=== PATIENT | male | born 1935 | race Caucasian/White ===

== ENCOUNTER 2018-04-29 12:25 | Emergency (ER) | payer MEDICARE, OTHER ==
[2018-04-29] MEDS ORDERED: Sodium Chloride 0.9% 10 ML Syringe FLUSH PRN (13:00)
[2018-04-29] MEDS ORDERED: Furosemide 40 MG/4 ML VIAL IVPUSH ONE ×2 (13:00→17:41)
--- NOTE | 2018-04-29 13:23 | EDM.PDOC ---
ED HPI GENERAL MEDICAL PROBLEM - General Chief Complaint: Cardiovascular Problem Stated Complaint: ANEMIA BLOOD IN STOOL Time Seen by Provider: 04/29/18 12:42 Source of Information: Reports: Patient, RN Notes Reviewed - History of Present Illness INITIAL COMMENTS - FREE TEXT/NARRATIVE: 82-year-old male was been sent over [facility] further evaluation, consideration for admission for blood transfusion. Found to be anemic with a hemoglobin of 7.7 last week, 7.5 this morning. Had progressive shortness of breath over the past couple of weeks especially point where it is difficult for him to walk even in the house even more difficult outdoors. She has to just shuffle, walked very slowly or he gets "too out of breath. He has not been coughing any more than usual. He does have history of hypertension. He did see a docket clerk just sometime in the past month or so, was told his heart "was fine". He has had worsening swelling of his ankles and feet over the past several weeks. He has not noticed any black or tarry stools. He does have some hemorrhoids but No bright red blood has been visualized. He has had colonoscopy in the past, about 8 or 9 years ago. He has no history of bleeding ulcer anything of that nature. He does take aspirin 325 mg daily in addition to his other current medications. - Related Data Allergies Allergy/AdvReac Type Severity Reaction Status Date / Time alcohol Allergy Headache Verified 04/29/18 12:55 hydrochlorothiazide Allergy Cannot Verified 04/29/18 12:55 Remember Penicillins Allergy Hives Verified 04/29/18 12:55 Home Meds: Home Meds Allopurinol [Zyloprim] 100 mg PO DAILY 04/29/18 [History] Aspirin 325 mg PO DAILY 04/29/18 [History] Calcium Carbonate [Tums] 1 tab PO DAILY PRN 04/29/18 [History] Clindamycin HCl 300 mg PO TID 04/29/18 [History] Colestipol [Colestipol HCl] 1 gm PO DAILY PRN 04/29/18 [History] Enalapril Maleate [Vasotec] 20 mg PO DAILY 04/29/18 [History] Furosemide [Lasix] 20 mg PO DAILY 04/29/18 [History] Furosemide [Lasix] 40 mg PO DAILY #30 tab 04/29/18 [Rx] Meloxicam [Mobic] 15 mg PO DAILY 04/29/18 [History] Metoprolol Tartrate [Lopressor] 50 mg PO BID 04/29/18 [History] amLODIPine [Norvasc] 5 mg PO DAILY 04/29/18 [History] Past Medical History Cardiovascular History: Reports: Heart Failure, Hypertension - Past Surgical History GI Surgical History: Reports: Appendectomy, Hernia Repair/Other Other GI Surgeries/Procedures: colectomy Neurological Surgical History: Reports: Laminectomy Musculoskeletal Surgical History: Reports: Other (See Below) Other Musculoskeletal Surgeries/Procedures:: knee surgery Social & Family History - Tobacco Use Smoking Status *Q: Never Smoker Second Hand Smoke Exposure: No - Caffeine Use Caffeine Use: Reports: Soda - Recreational Drug Use Recreational Drug Use: No ED ROS GENERAL - Review of Systems Review Of Systems: See Below Constitutional: Reports: Malaise, Weakness (Generalized). Denies: Fever, Chills , Diaphoresis HEENT: Denies: Sinus Problem, Throat Pain Respiratory: Reports: Shortness of Breath. Denies: Wheezing, Cough (, Especially exertional) Cardiovascular: Reports: Edema. Denies: Chest Pain GI/Abdominal: Denies: Abdominal Pain, Nausea, Vomiting Musculoskeletal: Reports: No Symptoms Skin: Reports: No Symptoms Neurological: Reports: Dizziness ED EXAM, GENERAL - Physical Exam Exam: See Below General Appearance: Alert, No Apparent Distress Eye Exam: Bilateral Eye: PERRL Throat/Mouth: Normal Inspection Neck: Supple Respiratory/Chest: No Respiratory Distress, Lungs Clear, Normal Breath Sounds. No: Rales, Rhonchi, Wheezing Cardiovascular: Regular Rate, Rhythm GI/Abdominal: Soft, Non-Tender Rectal (Males) Exam: Normal Exam, Heme - Stool Extremities: Pedal Edema. No: Leg Pain, Increased Warmth, Redness Neurological: Alert, Oriented, No Motor/Sensory Deficits Skin Exam: Warm, Dry, Pallor Course - Vital Signs Last Recorded V/S: Last Vital Signs Temp 98.9 F 04/29/18 18:08 Pulse 66 04/29/18 18:08 Resp 16 04/29/18 18:08 BP 151/86 H 04/29/18 18:08 Pulse Ox 98 04/29/18 18:08 - Orders/Labs/Meds Orders: Active Orders 24 hr Category Date Time Status Peripheral IV Care [RC] . DIRECTED Care 04/29/18 13:00 Active PACKED CELLS [RED BLOOD CELLS LP] [BBK] Stat Lab 04/29/18 13:30 Results PATIENT RETYPE [BBK] Stat Lab 04/29/18 13:30 Results TYPE AND SCREEN [BBK] Stat Lab 04/29/18 13:30 Results Sodium Chloride 0.9% [Normal Saline] 500 ml Med 04/29/18 13:44 Active IV NOW Sodium Chloride 0.9% [Saline Flush] Med 04/29/18 13:00 Active 10 ml FLUSH ASDIRECTED PRN Peripheral IV Insertion Adult [OM.PC] Stat Oth 04/29/18 13:00 Ordered Medication Orders Sodium Chloride (Normal Saline) 500 mls @ 30 mls/hr IV NOW STA Stop: 04/30/18 06:23 Last Admin: 04/29/18 14:57 Dose: 30 mls/hr Sodium Chloride (Saline Flush) 10 ml FLUSH ASDIRECTED PRN PRN Reason: Keep Vein Open Last Admin: 04/29/18 13:24 Dose: 10 ml Labs: Laboratory Tests 04/29/18 04/29/18 Range/Units 13:30 13:30 Iron 44 L (65-175) ug/dL Blood Type A POSITIVE Gel Antibody Screen Negative Crossmatch See Detail Meds: Medications Generic Name Dose Route Start Last Admin Trade Name Freq PRN Reason Stop Dose Admin Sodium Chloride 500 mls @ 30 mls/hr 04/29/18 13:44 04/29/18 14:57 Normal Saline IV 04/30/18 06:23 30 mls/hr NOW STA Administration Sodium Chloride 10 ml 04/29/18 13:00 04/29/18 13:24 Saline Flush FLUSH 10 ml ASDIRECTED PRN Administration Keep Vein Open Discontinued Medications Generic Name Dose Route Start Last Admin Trade Name Freq PRN Reason Stop Dose Admin Furosemide 40 mg 04/29/18 13:00 04/29/18 13:23 Lasix IVPUSH 04/29/18 13:01 40 mg NOW ONE Administration Furosemide 40 mg 04/29/18 17:41 04/29/18 17:49 Lasix IVPUSH 04/29/18 17:42 40 mg NOW ONE Administration - Re-Assessments/Exams Free Text/Narrative Re-Assessment/Exam: 04/29/18 13:00. Patient is not really ill enough for admission into the hospital to receive blood. However he is clearly very symptomatic with his severe shortness of breath even with very slow walking. Hemoglobin is dropping from 7.7 last to 7.5 today. He will clearly benefit from transfusion. We will do that here through the ED this afternoon. Have previously already given Lasix 40 mg IV. Patient is very agreeable to this plan. He will then need further outpatient workup, especially colonoscopy, endoscopy to look for source of bleeding. 04/29/18 19:02. Patient is doing well, receiving a second unit. We did give another 40 of Lasix prior to starting the second unit about an hour and a half ago. Departure - Departure Time of Disposition: 20:14 Disposition: Home, Self-Care 01 Condition: Fair Clinical Impression: Fluid retention Anemia Qualifiers: Anemia type: unspecified type Qualified Code(s): D64.9 - Anemia, unspecified Congestive heart failure Qualifiers: Heart failure type: right-sided Heart failure chronicity: unspecified Qualified Code(s): I50.810 - Right heart failure, unspecified Prescriptions: Furosemide [Lasix] 40 mg PO DAILY #30 tab Referrals: Rosalia Duarte, ANATOMY AND PHYSIOLOGY INSTRUCTOR [Primary Care Provider] - Forms: ED Department Discharge Additional Instructions: Rest and elevate legs when not walking, furosemide or lasix 40 mg daily in addition to your other medications at this time, if you are already taking Lasix or furosemide 20 mg stop that while increased to the 40 mg dosage. That is a water pill as well as a blood pressure medicine, will help get rid of the extra fluid you are retaining at this time. Follow-up with Rosalia Duarte at the clinic in about 2 days, call for appointment. She will help make further arrangements for colonoscopy, endoscopy for further evaluation of what appears to be blood loss anemia. Begin iron supplement and take that twice daily as your iron today did test low. Pickup probiotic this evening as well when you' re at the pharmacy, that is available OTC. That should help you with your diarrhea. Take that 2 times daily for 1 week and thereafter as needed. - My Orders Last 24 Hours: My Active Orders 04/29/18 13:00 Peripheral IV Care [RC] . DIRECTED Sodium Chloride 0.9% [Saline Flush] 10 ml FLUSH ASDIRECTED PRN Peripheral IV Insertion Adult [OM.PC] Stat 04/29/18 13:30 PACKED CELLS [RED BLOOD CELLS LP] [BBK] Stat PATIENT RETYPE [BBK] Stat TYPE AND SCREEN [BBK] Stat 04/29/18 13:44 Sodium Chloride 0.9% [Normal Saline] 500 ml IV NOW - Assessment/Plan Last 24 Hours: My Active Orders 04/29/18 13:00 Peripheral IV Care [RC] . DIRECTED Sodium Chloride 0.9% [Saline Flush] 10 ml FLUSH ASDIRECTED PRN Peripheral IV Insertion Adult [OM.PC] Stat 04/29/18 13:30 PACKED CELLS [RED BLOOD CELLS LP] [BBK] Stat PATIENT RETYPE [BBK] Stat TYPE AND SCREEN [BBK] Stat 04/29/18 13:44 Sodium Chloride 0.9% [Normal Saline] 500 ml IV NOW
[2018-04-29] MEDS ORDERED: Sodium Chloride 0.9% 500 ML IV STA (13:44)
--- NOTE | 2018-04-29 14:51 | CR ---
Chest: Portable view of the chest was obtained. Comparison: No prior chest x-ray, prior chest CT of 11/04/12. Heart is slightly enlarged. Tortuous thoracic aorta is seen. Minimal linear density within the right base is seen compatible with slight atelectasis or scarring. Lungs otherwise are clear with no acute parenchymal change. Bony structures are grossly intact. Impression: 1. Incidental findings. Nothing acute is seen on portable chest x-ray. Diagnostic code #2
[2018-04-29 18:12] VITALS: BP 151/86
== END 2018-04-29 20:50 | disposition home or self-care (01) ==
LOC: JD.ED 12:25
DX: I11.0 Hypertensive heart disease with heart failure (principal); I50.810 Right heart failure, unspecified; R60.9 Edema, unspecified; Z88.0 Allergy status to penicillin; Z88.8 Allergy status to other drugs, medicaments and biological substances; Z79.899 Other long term (current) drug therapy; Z79.82 Long term (current) use of aspirin
CPT/HCPCS: 36415; 36430; 71045; 83540; 86850; 86900; 86901; 86922; 96361; 96374; 96376; 99285; J1940; J7040; J7050; P9016; 99284

== ENCOUNTER 2018-05-01 12:39 | Inpatient (IN) | payer MEDICARE, OTHER ==
[2018-05-01] MEDS ORDERED: Sodium Chloride 0.9% 10 ML Syringe FLUSH PRN (13:29)
--- NOTE | 2018-05-01 14:25 | CR ---
Chest: Frontal view of the chest was obtained utilizing portable technique. Comparison: Prior chest x-ray of 04/29/18. Prominence of the superior mediastinum is seen. Difficult to exclude adenopathy. Heart is mildly enlarged. Lungs are clear with no acute parenchymal densities. Bony structures are grossly intact. Impression: 1. Prominence of superior mediastinum and difficult to exclude adenopathy. Chest CT would be needed to further evaluate. 2. Mild cardiomegaly. Nothing acute is otherwise seen. Diagnostic code #9
[2018-05-01] MEDS ORDERED: Diltiazem 25 MG/5 ML SDV IVPUSH ONE (14:44)
--- NOTE | 2018-05-01 14:45 | EDM.PDOC ---
ED HPI GENERAL MEDICAL PROBLEM - General Chief Complaint: Respiratory Problem Stated Complaint: SOB-SENT BY CLINIC Time Seen by Provider: 05/01/18 13:29 Source of Information: Reports: Patient History Limitations: Reports: No Limitations - History of Present Illness INITIAL COMMENTS - FREE TEXT/NARRATIVE: The patient is an 82-year-old male who was sent over from Dr. Downey clinic for irregular tachycardia. Patient was seen here 2 days ago with shortness of breath. At that time he was completely anemic with a hemoglobin of 7. He was transfused 2 units of blood. Guaiac testing at that time was reportedly normal. He was also started on Lasix for lower extremity edema. He's been taking the Lasix and states that the edema has gone down a lot. He continues to feel short of breath. States that he's been feeling short of breath for quite some time. No chest pain and no palpitations. He was seen in clinic today by Dr. Aguirre and noted to have an irregular tachycardia so sent here for further evaluation. He states he has had an irregular heartbeat before but has never been told that he has atrial fibrillation. No fever. No additional complaint. States that he did not take her Lasix this morning but he did take his usual blood pressure medications which include metoprolol. - Related Data Allergies Allergy/AdvReac Type Severity Reaction Status Date / Time alcohol Allergy Headache Verified 05/01/18 17:37 hydrochlorothiazide Allergy Cannot Verified 05/01/18 17:37 Remember Penicillins Allergy Hives Verified 05/01/18 17:37 Home Meds: Home Meds Allopurinol [Zyloprim] 100 mg PO DAILY 04/29/18 [History] Aspirin 325 mg PO DAILY 04/29/18 [History] Calcium Carbonate [Tums] 1 tab PO DAILY PRN 04/29/18 [History] Clindamycin HCl 300 mg PO TID 04/29/18 [History] Colestipol [Colestipol HCl] 1 gm PO DAILY PRN 04/29/18 [History] Enalapril Maleate [Vasotec] 20 mg PO DAILY 04/29/18 [History] Furosemide [Lasix] 20 mg PO DAILY 04/29/18 [History] Furosemide [Lasix] 40 mg PO DAILY #30 tab 04/29/18 [Rx] Meloxicam [Mobic] 15 mg PO DAILY 04/29/18 [History] Metoprolol Tartrate [Lopressor] 50 mg PO BID 04/29/18 [History] amLODIPine [Norvasc] 5 mg PO DAILY 04/29/18 [History] Past Medical History Cardiovascular History: Reports: Heart Failure, Hypertension Respiratory History: Reports: Pneumonia, Recurrent Gastrointestinal History: Reports: GERD Genitourinary History: Reports: Renal Calculus Musculoskeletal History: Reports: Fracture Hematologic History: Reports: Anemia, Blood Transfusion(s), Iron Deficiency - Infectious Disease History Infectious Disease History: Reports: Chicken Pox, Measles, Mumps - Past Surgical History GI Surgical History: Reports: Appendectomy, Hernia Repair/Other Other GI Surgeries/Procedures: colectomy Neurological Surgical History: Reports: Laminectomy Musculoskeletal Surgical History: Reports: Other (See Below) Other Musculoskeletal Surgeries/Procedures:: knee surgery Social & Family History - Tobacco Use Smoking Status *Q: Never Smoker Second Hand Smoke Exposure: No - Caffeine Use Caffeine Use: Reports: Soda - Recreational Drug Use Recreational Drug Use: No ED ROS GENERAL - Review of Systems Review Of Systems: See Below Constitutional: Denies: Fever HEENT: Reports: No Symptoms Respiratory: Reports: Shortness of Breath Cardiovascular: Denies: Chest Pain, Palpitations Endocrine: Reports: Fatigue GI/Abdominal: Reports: No Symptoms : Reports: No Symptoms Musculoskeletal: Reports: No Symptoms Skin: Reports: No Symptoms Neurological: Reports: No Symptoms Psychiatric: Reports: No Symptoms Hematologic/Lymphatic: Reports: No Symptoms Immunologic: Reports: No Symptoms ED EXAM, GENERAL - Physical Exam Exam: See Below Exam Limited By: No Limitations General Appearance: Alert, WD/WN, No Apparent Distress Eye Exam: Bilateral Eye: Normal Inspection, PERRL Ears: Normal External Exam Nose: Normal Inspection Throat/Mouth: Normal Inspection, Normal Oropharynx, Normal Voice, No Airway Compromise Head: Atraumatic, Normocephalic Neck: Normal Inspection, Supple, Non-Tender, Full Range of Motion Respiratory/Chest: No Respiratory Distress, Lungs Clear, Normal Breath Sounds, No Accessory Muscle Use, Chest Non-Tender Cardiovascular: No Edema, Irregularly Irregular, Other (Rate ranges from 120-140 ) GI/Abdominal: Soft, Non-Tender, No Distention Back Exam: Normal Inspection Extremities: Normal Inspection, No Pedal Edema Neurological: Alert, Oriented, Normal Cognition, No Motor/Sensory Deficits Psychiatric: Normal Affect, Normal Mood Skin Exam: Warm, Dry, Intact, Normal Color, No Rash Course - Vital Signs Last Recorded V/S: Last Vital Signs Temp 36.6 C 05/01/18 17:31 Pulse 105 H 05/01/18 17:31 Resp 16 05/01/18 17:31 BP 124/77 05/01/18 17:31 Pulse Ox 94 L 05/01/18 17:31 - Orders/Labs/Meds Orders: Active Orders 24 hr Category Date Time Status EKG 12 Lead [EKG Documentation Completion] [RC] STAT Care 05/01/18 13:29 Active UA W/MICROSCOPIC [URIN] Stat Lab 05/01/18 13:29 Ordered Sodium Chloride 0.9% [Saline Flush] Med 05/01/18 13:29 Active 10 ml FLUSH ASDIRECTED PRN Peripheral IV Insertion Adult [OM.PC] Routine Oth 05/01/18 13:30 Ordered Medication Orders Metoprolol Tartrate (Lopressor) 50 mg PO TID STEPHY Metoprolol Tartrate (Lopressor) 5 mg IVPUSH Q6H PRN PRN Reason: heart rate Sodium Chloride (Saline Flush) 10 ml FLUSH ASDIRECTED PRN PRN Reason: Keep Vein Open Last Admin: 05/01/18 13:37 Dose: 10 ml Labs: Laboratory Tests 05/01/18 05/01/18 05/01/18 Range/Units 13:47 13:47 13:47 WBC 12.66 H (4.23-9.07) K/mm3 RBC 5.04 (4.63-6.08) M/mm3 Hgb 10.5 L (13.7-17.5) gm/L Hct 35.1 L (40.1-51.0) % MCV 69.6 L (79.0-92.2) fl MCH 20.8 L (25.7-32.2) pg MCHC 29.9 L (32.2-35.5) g/dl RDW Std Deviation 49.9 H (35.1-43.9) fL Plt Count 270 (163-337) K/mm3 MPV 10.8 (9.4-12.3) fl Neut % (Auto) 78.5 H (34.0-67.9) % Lymph % (Auto) 9.8 L (21.8-53.1) % [place] % (Auto) 10.0 (5.3-12.2) % Eos % (Auto) 1.3 (0.8-7.0) Baso % (Auto) 0.2 (0.1-1.2) % Neut # (Auto) 9.93 H (1.78-5.38) K/mm3 Lymph # (Auto) 1.24 L (1.32-3.57) K/mm3 [place] # (Auto) 1.27 H (0.30-0.82) K/mm3 Eos # (Auto) 0.16 (0.04-0.54) K/mm3 Baso # (Auto) 0.03 (0.01-0.08) K/mm3 Manual Slide Review Abnormal smear PT 12.2 H (9.5-12.1) SECONDS INR 1.12 Sodium 144 (136-145) mEq/L Potassium 3.5 (3.5-5.1) mEq/L Chloride 109 H (98-107) mEq/L Carbon Dioxide 22 (21-32) mEq/L Anion Gap 16.5 H (5-15) BUN 29 H (7-18) mg/dL Creatinine 1.9 H (0.7-1.3) mg/dL Est Cr Clr Drug Dosing 31.01 mL/min Estimated GFR (MDRD) 34 (>60) mL/min BUN/Creatinine Ratio 15.3 (14-18) Glucose 136 H (83-115) mg/dL Calcium 8.0 L (8.5-10.1) mg/dL Magnesium 1.7 L (1.8-2.4) mg/dl Total Bilirubin 0.7 (0.2-1.0) mg/dL AST 13 L (15-37) U/L ALT 15 L (16-63) U/L Alkaline Phosphatase 105 (46-116) U/L Troponin I < 0.017 (0.00-0.056) ng/mL Total Protein 6.4 (6.4-8.2) g/dl Albumin 3.1 L (3.4-5.0) g/dl Globulin 3.3 gm/dL Albumin/Globulin Ratio 0.9 L (1-2) Meds: Medications Generic Name Dose Route Start Last Admin Trade Name Freq PRN Reason Stop Dose Admin Metoprolol Tartrate 50 mg 05/01/18 21:00 Lopressor PO TID STEPHY Metoprolol Tartrate 5 mg 05/01/18 17:49 Lopressor IVPUSH Q6H PRN heart rate Sodium Chloride 10 ml 05/01/18 13:29 05/01/18 13:37 Saline Flush FLUSH 10 ml ASDIRECTED PRN Administration Keep Vein Open Discontinued Medications Generic Name Dose Route Start Last Admin Trade Name Guzman PRN Reason Stop Dose Admin Diltiazem HCl 10 mg 05/01/18 14:44 05/01/18 15:10 Diltiazem IVPUSH 05/01/18 14:45 10 mg ONETIME ONE Administration Magnesium Sulfate 2 gm/ Premix 50 mls @ 25 mls/hr 05/01/18 14:46 05/01/18 15: 16 IV 05/01/18 16:45 25 mls/hr ONETIME ONE Administration Metoprolol Tartrate 50 mg 05/01/18 15:25 05/01/18 15:33 Lopressor PO 05/01/18 15:26 50 mg ONETIME ONE Administration - Re-Assessments/Exams Free Text/Narrative Re-Assessment/Exam: 05/01/18 18:18 Patient has narrow complex tachycardia on the monitor with a normal blood pressure. He is well appearing and is in not in any distress. States he feels fine but just came here because he was sent from clinic area she is not aware of having had a prior street of atrial fibrillation. This appears to be new onset. His heart rate during his recent visit 2 days ago was normal. He does state that he took his metoprolol this morning. EKG shows narrow complex tachycardia, irregular, consistent with atrial fibrillation with rapid ventricular response. Patient was given 10 mg of diltiazem and rate improved to approximately [address] Palacios who recommended giving him an additional dose of his metoprolol. She will admit him to observation for further workup. His labs are significant for low magnesium which was repleted in the emergency department. Electrolytic were otherwise normal. His hemoglobin is 10.5. He denies having had bloody or melanotic stools. Departure - Departure Time of Disposition: 15:28 Disposition: Refer to Observation Clinical Impression: Atrial fibrillation with rapid ventricular response - Discharge Information - My Orders Last 24 Hours: My Active Orders 05/01/18 13:29 EKG 12 Lead [EKG Documentation Completion] [RC] STAT UA W/MICROSCOPIC [URIN] Stat Sodium Chloride 0.9% [Saline Flush] 10 ml FLUSH ASDIRECTED PRN 05/01/18 13:30 Peripheral IV Insertion Adult [OM.PC] Routine - Assessment/Plan Last 24 Hours: My Active Orders 05/01/18 13:29 EKG 12 Lead [EKG Documentation Completion] [RC] STAT UA W/MICROSCOPIC [URIN] Stat Sodium Chloride 0.9% [Saline Flush] 10 ml FLUSH ASDIRECTED PRN 05/01/18 13:30 Peripheral IV Insertion Adult [OM.PC] Routine
[2018-05-01] MEDS ORDERED: Magnesium Sulfate/Water 2 GM in Premix Bag 1 BAG IV ONE (14:46)
[2018-05-01] MEDS ORDERED: Metoprolol Tartrate 50 MG Tab PO ONE (15:25)
--- NOTE | 2018-05-01 17:30 | PCM.HP ---
H&P History of Present Illness - General Date of Service: 05/01/18 Admit Problem/Dx: Admission Diagnosis/Problem Admission Diagnosis/Problem Atrial fibrillation Source of Information: Patient, Provider History Limitations: Reports: No Limitations - History of Present Illness Initial Comments - Free Text/Narative: 82 year old recently transfused PRBCs for Hgb of 6, presented from procedure room for colonoscopy. 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 He complained of SOB, but denied palpitations. he is unaware of a diagnosis of A Fib, however he is on cardiac rate controlling meds including Metoprolol. He stated that he took his meds this morning. The Patient denies additional complaints. He will be admitted for close monitoring and treatment. A general surgery consult has been ordered. Golytely has been ordered with a clear liquid diet. 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 The patient is a full code. Onset of Symptoms: Reports: Sudden Symptom Onset Date: 05/01/18 Duration of Symptoms: Reports: Hour(s):, Getting Worse Location: Reports: Chest Quality: Reports: Same as Previous Episode Severity: Moderate Improves with: Reports: Medication Worsens with: Reports: None Associated Symptoms: Reports: Shortness of Breath, Weakness - Related Data Allergies/Adverse Reactions: Allergies Allergy/AdvReac Type Severity Reaction Status Date / Time alcohol Allergy Headache Verified 05/01/18 17:37 hydrochlorothiazide Allergy Cannot Verified 05/01/18 17:37 Remember Penicillins Allergy Hives Verified 05/01/18 17:37 Home Medications: Home Meds Allopurinol [Zyloprim] 100 mg PO DAILY 04/29/18 [History] Aspirin 325 mg PO DAILY 04/29/18 [History] Calcium Carbonate [Tums] 1 tab PO DAILY PRN 04/29/18 [History] Colestipol [Colestipol HCl] 1 gm PO TID 04/29/18 [History] Enalapril Maleate [Vasotec] 20 mg PO DAILY 04/29/18 [History] Furosemide [Lasix] 40 mg PO DAILY #30 tab 04/29/18 [Rx] Meloxicam [Mobic] 15 mg PO DAILY 04/29/18 [History] Metoprolol Tartrate [Lopressor] 50 mg PO BID 04/29/18 [History] amLODIPine [Norvasc] 5 mg PO DAILY 04/29/18 [History] Past Medical History Cardiovascular History: Reports: Heart Failure, Hypertension Respiratory History: Reports: Pneumonia, Recurrent Gastrointestinal History: Reports: GERD Genitourinary History: Reports: Renal Calculus Musculoskeletal History: Reports: Fracture Hematologic History: Reports: Anemia, Blood Transfusion(s), Iron Deficiency - Infectious Disease History Infectious Disease History: Reports: Chicken Pox, Measles, Mumps - Past Surgical History GI Surgical History: Reports: Appendectomy, Hernia Repair/Other Other GI Surgeries/Procedures: colectomy Neurological Surgical History: Reports: Laminectomy Musculoskeletal Surgical History: Reports: Other (See Below) Other Musculoskeletal Surgeries/Procedures:: knee surgery Social & Family History - Tobacco Use Smoking Status *Q: Never Smoker Second Hand Smoke Exposure: No - Caffeine Use Caffeine Use: Reports: Soda - Recreational Drug Use Recreational Drug Use: No H&P Review of Systems - Review of Systems: Review Of Systems: ROS reveals no pertinent complaints other than HPI. Exam - Exam Exam: See Below - Vital Signs Vital Signs: Last Vital Signs Temp 36.7 C 05/01/18 12:54 Pulse 98 05/01/18 15:33 Resp 20 05/01/18 15:17 BP 105/66 05/01/18 15:33 Pulse Ox 93 L 05/01/18 15:17 Weight: 101.378 kg - Exam Quality Assessment: Supplemental Oxygen, DVT Prophylaxis General: Alert, Oriented, Cooperative HEENT: Conjunctiva Clear, EOMI, Nares Patent, Normal Nasal Septum, Pupils Equal , Pupils Reactive, PERRLA Neck: Trachea Midline Lungs: Normal Respiratory Effort Cardiovascular: Regular Rate, Irregular Rhythm, Tachycardia GI/Abdominal Exam: Normal Bowel Sounds, Soft, Non-Tender, No Organomegaly, No Distention (Male) Exam: Deferred Rectal (Males) Exam: Deferred Back Exam: Normal Inspection Extremities: Normal Inspection, Normal Capillary Refill Skin: Warm, Dry, Intact Neurological: Cranial Nerves Intact Neuro Extensive - Mental Status: Alert, Oriented x3, Normal Mood/Affect, Normal Cognition Neuro Extensive - Motor, Sensory, Reflexes: CN II-XII Intact Psychiatric: Alert, Normal Affect, Normal Mood - Patient Data Lab Results Last 24 hrs: Laboratory Results - last 24 hr 05/01/18 05/01/18 05/01/18 Range/Units 13:47 13:47 13:47 WBC 12.66 H (4.23-9.07) K/mm3 RBC 5.04 (4.63-6.08) M/mm3 Hgb 10.5 L (13.7-17.5) gm/L Hct 35.1 L (40.1-51.0) % MCV 69.6 L (79.0-92.2) fl MCH 20.8 L (25.7-32.2) pg MCHC 29.9 L (32.2-35.5) g/dl RDW Std Deviation 49.9 H (35.1-43.9) fL Plt Count 270 (163-337) K/mm3 MPV 10.8 (9.4-12.3) fl Neut % (Auto) 78.5 H (34.0-67.9) % Lymph % (Auto) 9.8 L (21.8-53.1) % [place] % (Auto) 10.0 (5.3-12.2) % Eos % (Auto) 1.3 (0.8-7.0) Baso % (Auto) 0.2 (0.1-1.2) % Neut # (Auto) 9.93 H (1.78-5.38) K/mm3 Lymph # (Auto) 1.24 L (1.32-3.57) K/mm3 [place] # (Auto) 1.27 H (0.30-0.82) K/mm3 Eos # (Auto) 0.16 (0.04-0.54) K/mm3 Baso # (Auto) 0.03 (0.01-0.08) K/mm3 Manual Slide Review Abnormal smear PT 12.2 H (9.5-12.1) SECONDS INR 1.12 Sodium 144 (136-145) mEq/L Potassium 3.5 (3.5-5.1) mEq/L Chloride 109 H (98-107) mEq/L Carbon Dioxide 22 (21-32) mEq/L Anion Gap 16.5 H (5-15) BUN 29 H (7-18) mg/dL Creatinine 1.9 H (0.7-1.3) mg/dL Est Cr Clr Drug Dosing 31.01 mL/min Estimated GFR (MDRD) 34 (>60) mL/min BUN/Creatinine Ratio 15.3 (14-18) Glucose 136 H (83-115) mg/dL Calcium 8.0 L (8.5-10.1) mg/dL Magnesium 1.7 L (1.8-2.4) mg/dl Total Bilirubin 0.7 (0.2-1.0) mg/dL AST 13 L (15-37) U/L ALT 15 L (16-63) U/L Alkaline Phosphatase 105 (46-116) U/L Troponin I < 0.017 (0.00-0.056) ng/mL Total Protein 6.4 (6.4-8.2) g/dl Albumin 3.1 L (3.4-5.0) g/dl Globulin 3.3 gm/dL Albumin/Globulin Ratio 0.9 L (1-2) Result Diagrams: 05/02/18 05:43 05/02/18 05:43 - Problem List (1) Atrial fibrillation with rapid ventricular response SNOMED Code(s): 389805860707922 ICD Code: I48.91 - UNSPECIFIED ATRIAL FIBRILLATION Status: Acute Current Visit: Yes (2) Anemia SNOMED Code(s): 971661053 ICD Code: D64.9 - ANEMIA, UNSPECIFIED Status: Acute Current Visit: No Qualifiers: Anemia type: unspecified type Qualified Code(s): D64.9 - Anemia, unspecified (3) Congestive heart failure SNOMED Code(s): 25056748 ICD Code: I50.9 - HEART FAILURE, UNSPECIFIED Status: Acute Current Visit : No Qualifiers: Heart failure type: right-sided Heart failure chronicity: unspecified Qualified Code(s): I50.810 - Right heart failure, unspecified (4) Hypertension SNOMED Code(s): 33533933 ICD Code: I10 - ESSENTIAL (PRIMARY) HYPERTENSION Status: Acute Current Visit: No Problem List Initiated/Reviewed/Updated: Yes Orders Last 24hrs: Active Orders 24 hr Category Date Time Status Patient Status [ADT] Routine ADT 05/01/18 16:42 Active EKG 12 Lead [EKG Documentation Completion] [RC] STAT Care 05/01/18 13:29 Active Peripheral IV Care [RC] . DIRECTED Care 05/01/18 13:30 Active Peripheral IV Care [RC] . DIRECTED Care 05/01/18 13:30 Active UA W/MICROSCOPIC [URIN] Stat Lab 05/01/18 13:29 Ordered Metoprolol Tartrate [Lopressor] Med 05/01/18 21:00 Ordered 50 mg PO TID Sodium Chloride 0.9% [Saline Flush] Med 05/01/18 13:29 Active 10 ml FLUSH ASDIRECTED PRN Peripheral IV Insertion Adult [OM.PC] Routine Oth 05/01/18 13:30 Ordered Medication Orders Metoprolol Tartrate (Lopressor) 50 mg PO TID STEPHY Sodium Chloride (Saline Flush) 10 ml FLUSH ASDIRECTED PRN PRN Reason: Keep Vein Open Last Admin: 05/01/18 13:37 Dose: 10 ml Assessment/Plan Comment:: Impression: S/P PRBCs for anemia, Fe deficiency Query Hx of A Fib; symptomatic A Fib with RVR Reported Hx of CHF HTN Plan: Increase oral BB/add IVP BB Monitor hemodynamics Reschedule UGI/LGI evaluation Golytely prep Clear liquid diet Add Anticoagulation after GI procedures are completed. DVT prophylaxis Consult PT/OT/CM as needed.
[2018-05-01] MEDS ORDERED: Metoprolol Tartrate 5 MG/5 ML SDV IVPUSH PRN (17:49)
[2018-05-01] MEDS ORDERED: Polyethylene Glycol/Electrolytes 4,000 ML Bottle PO ONE (18:21)
[2018-05-01] MEDS ORDERED: Diltiazem 125 MG in Sodium Chloride 0.9% 100 ML IV SCH (19:45)
[2018-05-01] MEDS: Metoprolol Tartrate 50 MG Tab PO SCH (22:15)
[2018-05-01] MEDS ORDERED: Ondansetron 4 MG/2 ML SDV IVPUSH PRN (22:50)
--- NOTE | 2018-05-02 10:54 | PCM.PREANE ---
Preanesthetic Assessment - Procedure Proposed Procedure: Diagnostic COlonoscopy Diagnostic EGD - Anesthesia/Transfusion/Family Hx Anesthesia History: Prior Anesthesia Reaction Type of Anesthesia Reaction: Excessive Somnolence Family History of Anesthesia Reaction: No Transfusion History: Prior Transfusion Without Reaction - Review of Systems General: No Symptoms Pulmonary: Other (Hx of pneumonia) Cardiovascular: Other (CHF, AFIB, HTN) Gastrointestinal: Other (GERD) Neurological: No Symptoms - Physical Assessment NPO Status Date: 05/02/18 NPO Status Time: 00:01 Pulse: 65 O2 Sat by Pulse Oximetry: 95 Respiratory Rate: 16 Blood Pressure: 132/69 Vital Signs: Last Vital Signs Temp 36.3 C 05/02/18 08:00 Pulse 65 05/02/18 08:00 Resp 16 05/02/18 08:00 BP 132/69 05/02/18 08:00 Pulse Ox 95 05/02/18 08:00 Height: 1.75 m Weight: 102.512 kg ASA Class: 3 Mental Status: Alert & Oriented x3 Airway Class: Mallampati = 2 Dentition: Reports: Missing Tooth/Teeth (missing the majority of his teeth, poor dentition, no dentures or partials ) Thyro-Mental Finger Breadths: 3 Mouth Opening Finger Breadths: 3 ROM/Head Extension: Full Lungs: Clear to Auscultation, Normal Respiratory Effort Cardiovascular: Regular Rate, Regular Rhythm - Lab Values: Laboratory Last Values WBC 10.52 K/mm3 (4.23-9.07) H 05/02/18 05:43 RBC 4.61 M/mm3 (4.63-6.08) L 05/02/18 05:43 Hgb 9.7 gm/L (13.7-17.5) L 05/02/18 05:43 Hct 32.6 % (40.1-51.0) L 05/02/18 05:43 MCV 70.7 fl (79.0-92.2) L 05/02/18 05:43 MCH 21.0 pg (25.7-32.2) L 05/02/18 05:43 MCHC 29.8 g/dl (32.2-35.5) L 05/02/18 05:43 RDW Std Deviation 50.2 fL (35.1-43.9) H 05/02/18 05:43 Plt Count 253 K/mm3 (163-337) 05/02/18 05:43 MPV 10.8 fl (9.4-12.3) 05/02/18 05:43 Neut % (Auto) 76.1 % (34.0-67.9) H 05/02/18 05:43 Lymph % (Auto) 10.9 % (21.8-53.1) L 05/02/18 05:43 [place] % (Auto) 9.2 % (5.3-12.2) 05/02/18 05:43 Eos % (Auto) 3.2 (0.8-7.0) 05/02/18 05:43 Baso % (Auto) 0.4 % (0.1-1.2) 05/02/18 05:43 Neut # (Auto) 8.00 K/mm3 (1.78-5.38) H 05/02/18 05:43 Lymph # (Auto) 1.15 K/mm3 (1.32-3.57) L 05/02/18 05:43 [place] # (Auto) 0.97 K/mm3 (0.30-0.82) H 05/02/18 05:43 Eos # (Auto) 0.34 K/mm3 (0.04-0.54) 05/02/18 05:43 Baso # (Auto) 0.04 K/mm3 (0.01-0.08) 05/02/18 05:43 Manual Slide Review Abnormal smear 05/02/18 05:43 PT 12.2 SECONDS (9.5-12.1) H 05/01/18 13:47 INR 1.12 05/01/18 13:47 Sodium 144 mEq/L (136-145) 05/02/18 05:43 Potassium 3.4 mEq/L (3.5-5.1) L 05/02/18 05:43 Chloride 110 mEq/L (98-107) H 05/02/18 05:43 Carbon Dioxide 26 mEq/L (21-32) 05/02/18 05:43 Anion Gap 11.4 (5-15) 05/02/18 05:43 BUN 26 mg/dL (7-18) H 05/02/18 05:43 Creatinine 1.5 mg/dL (0.7-1.3) H 05/02/18 05:43 Est Cr Clr Drug Dosing 39.28 mL/min 05/02/18 05:43 Estimated GFR (MDRD) 45 mL/min (>60) 05/02/18 05:43 BUN/Creatinine Ratio 17.3 (14-18) 05/02/18 05:43 Glucose 114 mg/dL (83-115) 05/02/18 05:43 Calcium 7.8 mg/dL (8.5-10.1) L 05/02/18 05:43 Magnesium 1.9 mg/dl (1.8-2.4) 05/02/18 05:43 Total Bilirubin 0.7 mg/dL (0.2-1.0) 05/01/18 13:47 AST 13 U/L (15-37) L 05/01/18 13:47 ALT 15 U/L (16-63) L 05/01/18 13:47 Alkaline Phosphatase 105 U/L (46-116) 05/01/18 13:47 Troponin I < 0.017 ng/mL (0.00-0.056) 05/01/18 13:47 Total Protein 6.4 g/dl (6.4-8.2) 05/01/18 13:47 Albumin 3.1 g/dl (3.4-5.0) L 05/01/18 13:47 Globulin 3.3 gm/dL 05/01/18 13:47 Albumin/Globulin Ratio 0.9 (1-2) L 05/01/18 13:47 Urine Color Yellow (Yellow) 05/01/18 18:59 Urine Appearance Clear (Clear) 05/01/18 18:59 Urine pH 5.5 (5.0-8.0) 05/01/18 18:59 Ur Specific [place] > or = 1.030 (1.005-1.030) 05/01/18 18:59 Urine Protein 1+ (Negative) H 05/01/18 18:59 Urine Glucose (UA) Negative (Negative) 05/01/18 18:59 Urine Ketones Negative (Negative) 05/01/18 18:59 Urine Occult Blood Negative (Negative) 05/01/18 18:59 Urine Nitrite Negative (Negative) 05/01/18 18:59 Urine Bilirubin Negative (Negative) 05/01/18 18:59 Urine Urobilinogen 0.2 (0.2-1.0) 05/01/18 18:59 Ur Leukocyte Esterase Negative (Negative) 05/01/18 18:59 Urine RBC 0-5 /hpf (0-5) 05/01/18 18:59 Urine WBC 0-5 /hpf (0-5) 05/01/18 18:59 Ur Epithelial Cells 0-5 /hpf (0-5) 05/01/18 18:59 Calcium Oxalate Crystal Moderate (NONE) H 05/01/18 18:59 Urine Bacteria Few /hpf (FEW) 05/01/18 18:59 Urine Mucus Moderate /hpf (FEW) H 05/01/18 18:59 - Allergies Allergies/Adverse Reactions: Allergies Allergy/AdvReac Type Severity Reaction Status Date / Time alcohol Allergy Headache Verified 05/01/18 17:37 hydrochlorothiazide Allergy Cannot Verified 05/01/18 17:37 Remember Penicillins Allergy Hives Verified 05/01/18 17:37 - Blood Blood Available: No Product(s) Available: None - Anesthesia Plan Pre-Op Medication Ordered: None Beta Jeramie: Metoprolol Med Last Dose Date: 05/02/18 - Acknowledgements Anesthesia Type Planned: MAC Pt an Appropriate Candidate for the Planned Anesthesia: Yes Alternatives and Risks of Anesthesia Discussed w Pt/Guardian: Yes Pt/Guardian Understands and Agrees with Anesthesia Plan: Yes PreAnesthesia Questionnaire Cardiovascular History: Reports: Heart Failure, Hypertension Respiratory History: Reports: Pneumonia, Recurrent Gastrointestinal History: Reports: GERD Genitourinary History: Reports: Renal Calculus Musculoskeletal History: Reports: Fracture Hematologic History: Reports: Anemia, Blood Transfusion(s), Iron Deficiency - Infectious Disease History Infectious Disease History: Reports: Chicken Pox, Measles, Mumps - Past Surgical History GI Surgical History: Reports: Appendectomy, Hernia Repair/Other Other GI Surgeries/Procedures: colectomy Neurological Surgical History: Reports: Laminectomy Musculoskeletal Surgical History: Reports: Other (See Below) Other Musculoskeletal Surgeries/Procedures:: knee surgery - SUBSTANCE USE Smoking Status *Q: Never Smoker Second Hand Smoke Exposure: No Recreational Drug Use History: No - HOME MEDS Home Medications: Home Meds Allopurinol [Zyloprim] 100 mg PO DAILY 04/29/18 [History] Aspirin 325 mg PO DAILY 04/29/18 [History] Calcium Carbonate [Tums] 1 tab PO DAILY PRN 04/29/18 [History] Colestipol [Colestipol HCl] 1 gm PO TID 04/29/18 [History] Enalapril Maleate [Vasotec] 20 mg PO DAILY 04/29/18 [History] Furosemide [Lasix] 40 mg PO DAILY #30 tab 04/29/18 [Rx] Meloxicam [Mobic] 15 mg PO DAILY 04/29/18 [History] Metoprolol Tartrate [Lopressor] 50 mg PO BID 04/29/18 [History] amLODIPine [Norvasc] 5 mg PO DAILY 04/29/18 [History] - CURRENT (IN HOUSE) MEDS Current Meds: Current Medications Diltiazem HCl 125 mg/ Sodium (Chloride) 125 mls @ 10 mls/hr IV TITRATE STEPHY; Protocol Last Titration: 05/02/18 03:49 Dose: 0 mg/hr, 0 mls/hr Metoprolol Tartrate (Lopressor) 50 mg PO TID [facility] Last Admin: 05/01/18 22:15 Dose: Not Given Metoprolol Tartrate (Lopressor) 5 mg IVPUSH Q6H PRN PRN Reason: heart rate Last Admin: 05/01/18 18:20 Dose: 5 mg Ondansetron HCl (Zofran) 4 mg IVPUSH Q8H PRN PRN Reason: Nausea/Vomiting Sodium Chloride (Saline Flush) 10 ml FLUSH ASDIRECTED PRN PRN Reason: Keep Vein Open Last Admin: 05/01/18 13:37 Dose: 10 ml Discontinued Medications Diltiazem HCl (Diltiazem) 10 mg IVPUSH ONETIME ONE Stop: 05/01/18 14:45 Last Admin: 05/01/18 15:10 Dose: 10 mg Magnesium Sulfate 2 gm/ Premix 50 mls @ 25 mls/hr IV ONETIME ONE Stop: 05/01/18 16:45 Last Admin: 05/01/18 15:16 Dose: 25 mls/hr Metoprolol Tartrate (Lopressor) 50 mg PO ONETIME ONE Stop: 05/01/18 15:26 Last Admin: 05/01/18 15:33 Dose: 50 mg Polyethylene Glycol/Electrolytes (Golytely) 4,000 ml PO ONETIME ONE Stop: 05/01/18 18:22 Last Admin: 05/01/18 19:54 Dose: 4,000 ml
[2018-05-02] MEDS: Metoprolol Tartrate 50 MG Tab PO SCH ×3 (11:01→20:55)
[2018-05-02] MEDS ORDERED: fentaNYL 100 MCG/2 ML SDV ONE (11:20)
[2018-05-02] MEDS ORDERED: Propofol 200 MG/20 ML SDV ONE (11:20)
[2018-05-02] MEDS ORDERED: Lidocaine 1% 6 ML ONE (11:20)
--- NOTE | 2018-05-02 12:23 | PCM.OPNOTE ---
- General Post-Op/Procedure Note Date of Surgery/Procedure: 05/02/18 Operative Procedure(s): colonosocopy to iliocolonic anastomosis with bx and collection of specimine and EGD with bx Pre Op Diagnosis: anemia Post-Op Diagnosis: Same Anesthesia Technique: MAC Primary Surgeon: El Cash EBL in mLs: 0 Complications: None Condition: Good Free Text/Narrative:: Intake & Output 05/01/18 05/02/18 05/02/18 23:59 07:59 15:59 Intake Total 3055 Balance 3058
--- NOTE | 2018-05-02 12:29 | PCM48HPAN ---
Post Anesthesia Note - EVALUATION WITHIN 48HRS OF ANESTHETIC Vital Signs in Normal Range: Yes Patient Participated in Evaluation: Yes Respiratory Function Stable: Yes Airway Patent: Yes Cardiovascular Function Stable: Yes Hydration Status Stable: Yes Pain Control Satisfactory: Yes Nausea and Vomiting Control Satisfactory: Yes Mental Status Recovered: Yes Pulse Rate: 65 SaO2: 93 Resp Rate: 16 Temperature: 36.2 C Blood Pressure: 132/69 Pulse Rate: 64
--- NOTE | 2018-05-02 14:04 | OR ---
DATE OF OPERATION: 05/02/2018 SURGEON: El Cash MD PREOPERATIVE DIAGNOSIS: Anemia. POSTOPERATIVE DIAGNOSIS: Anemia. OPERATION PERFORMED: Esophagogastroduodenoscopy with biopsy of the antrum and the GE junction. FINDINGS: Some erythema in the antrum, apparently antritis for which biopsies were taken. There is a small sliding hiatal hernia, GE junction at 40 cm, and some mild chronic esophagitis noted at the GE junction. The second portion of the duodenum, duodenal bulb, pyloric channel, body, cardia, and fundus of the stomach, and balance of the esophagus was free of any acute disease. ANESTHESIA: Done under IV sedation. DESCRIPTION OF PROCEDURE: The patient was taken to the endoscopy room, placed in a supine position, connected to monitoring equipment, given IV sedation. The patient was placed in left lateral position. Bite-block was inserted and video Olympus gastroscope was placed in the posterior oropharynx, under direct vision, threaded past the cricopharyngeus, down the esophagus into the stomach. The stomach was insufflated, and the scope passed through the pylorus to the second portion of the duodenum, was slowly withdrawn showing normal second portion of the duodenum, duodenal bulb, antrum, and pyloric channel. Antrum, however, showed areas of erythema which were biopsied consistent with antritis. The body and cardia and fundus of the stomach was viewed. J-maneuver showed a small sliding hiatal hernia. GE junction was located at 40 cm and showing some chronic esophagitis. Biopsies were taken of this. Rest of the esophagus was unremarkable. Then viewed, the scope was withdrawn. The patient tolerated the procedure and IV sedation continued for colonoscopy and the pathology specimen sent to pathology in a labeled container. ESTIMATED BLOOD LOSS: MMODAL /[id number]
--- NOTE | 2018-05-02 14:04 | OR ---
DATE OF OPERATION: 05/02/2018 SURGEON: El Cash MD PREOPERATIVE DIAGNOSIS: Anemia. POSTOPERATIVE DIAGNOSIS: Anemia. OPERATION PERFORMED: Colonoscopy to the ileocolonic anastomosis with biopsy and collection of specimen. ANESTHESIA: Done under IV sedation. FINDINGS: Inflammation of the ileum either consistent with ischemia, colitis like Crohn's disease or recurrent cancer. There is clear evidence of an ileocolonic anastomosis of past right hemicolectomy. Outside of this finding, the rest of the colon is normal. DESCRIPTION OF PROCEDURE: The patient was taken to the endoscopy room for upper GI endoscopy, connected to monitoring equipment, and after IV sedation given. IV sedation was continued for colonoscopy. The patient was placed in the left lateral position. The perianal area was performed. A rectal exam done and video Olympus colonoscope was then introduced into the rectum and threaded up without problem to the ileocolonic anastomosis. This showed evidence of a right hemicolectomy. The ileum, however, was inflamed, thickened and reddened and easily bled. This area was biopsied and sent to pathology. Almost all the changes were noted in the ileum. The prep was excellent. [place] cleansing score grade A and outside of the ileum and that is the anastomosis. No other pathology was seen. The scope was then slowly withdrawn, reviewing the rest of the transverse colon, descending colon, sigmoid colon, and rectum. Retroflexed view was done. The patient tolerated the procedure, sent to recovery room in a stable condition. ESTIMATED BLOOD LOSS: MMODAL /[id number]
--- NOTE | 2018-05-02 14:26 | PCM.PN ---
- General Info Date of Service: 05/02/18 Functional Status: Reports: Pain Controlled, Tolerating Diet, Ambulating - Review of Systems General: Reports: No Symptoms HEENT: Reports: No Symptoms Pulmonary: Reports: No Symptoms Cardiovascular: Reports: No Symptoms Gastrointestinal: Reports: No Symptoms Genitourinary: Reports: No Symptoms Musculoskeletal: Reports: No Symptoms Skin: Reports: No Symptoms Neurological: Reports: No Symptoms Psychiatric: Reports: No Symptoms - Patient Data Vitals - Most Recent: Last Vital Signs Temp 36.4 C 05/02/18 12:30 Pulse 64 05/02/18 14:00 Resp 12 05/02/18 14:00 BP 156/82 H 05/02/18 14:00 Pulse Ox 95 05/02/18 14:00 Weight - Most Recent: 102.512 kg I&O - Last 24 Hours: Intake & Output 05/01/18 05/02/18 05/02/18 22:59 06:59 14:59 Intake Total 3059 Balance 3059 Lab Results Last 24 Hours: Laboratory Results - last 24 hr 05/01/18 05/02/18 05/02/18 Range/Units 18:59 05:43 05:43 WBC 10.52 H (4.23-9.07) K/mm3 RBC 4.61 L (4.63-6.08) M/mm3 Hgb 9.7 L (13.7-17.5) gm/L Hct 32.6 L (40.1-51.0) % MCV 70.7 L (79.0-92.2) fl MCH 21.0 L (25.7-32.2) pg MCHC 29.8 L (32.2-35.5) g/dl RDW Std Deviation 50.2 H (35.1-43.9) fL Plt Count 253 (163-337) K/mm3 MPV 10.8 (9.4-12.3) fl Neut % (Auto) 76.1 H (34.0-67.9) % Lymph % (Auto) 10.9 L (21.8-53.1) % [place] % (Auto) 9.2 (5.3-12.2) % Eos % (Auto) 3.2 (0.8-7.0) Baso % (Auto) 0.4 (0.1-1.2) % Neut # (Auto) 8.00 H (1.78-5.38) K/mm3 Lymph # (Auto) 1.15 L (1.32-3.57) K/mm3 [place] # (Auto) 0.97 H (0.30-0.82) K/mm3 Eos # (Auto) 0.34 (0.04-0.54) K/mm3 Baso # (Auto) 0.04 (0.01-0.08) K/mm3 Manual Slide Review Abnormal smear Sodium 144 (136-145) mEq/L Potassium 3.4 L (3.5-5.1) mEq/L Chloride 110 H (98-107) mEq/L Carbon Dioxide 26 (21-32) mEq/L Anion Gap 11.4 (5-15) BUN 26 H (7-18) mg/dL Creatinine 1.5 H (0.7-1.3) mg/dL Est Cr Clr Drug Dosing 39.28 mL/min Estimated GFR (MDRD) 45 (>60) mL/min BUN/Creatinine Ratio 17.3 (14-18) Glucose 114 (83-115) mg/dL Calcium 7.8 L (8.5-10.1) mg/dL Magnesium 1.9 (1.8-2.4) mg/dl Urine Color Yellow (Yellow) Urine Appearance Clear (Clear) Urine pH 5.5 (5.0-8.0) Ur Specific [place] > or = 1.030 (1.005-1.030) Urine Protein 1+ H (Negative) Urine Glucose (UA) Negative (Negative) Urine Ketones Negative (Negative) Urine Occult Blood Negative (Negative) Urine Nitrite Negative (Negative) Urine Bilirubin Negative (Negative) Urine Urobilinogen 0.2 (0.2-1.0) Ur Leukocyte Esterase Negative (Negative) Urine RBC 0-5 (0-5) /hpf Urine WBC 0-5 (0-5) /hpf Ur Epithelial Cells 0-5 (0-5) /hpf Calcium Oxalate Crystal Moderate H (NONE) Urine Bacteria Few (FEW) /hpf Urine Mucus Moderate H (FEW) /hpf Mario Results Last 24 Hours: Microbiology 05/02/18 12:11 Stool for WBCs - Final Stool / Feces - Stool, Liquid NO WBC SEEN Med Orders - Current: Current Medications Diltiazem HCl 125 mg/ Sodium (Chloride) 125 mls @ 10 mls/hr IV TITRATE STEPHY; Protocol Last Titration: 05/02/18 03:49 Dose: 0 mg/hr, 0 mls/hr Metoprolol Tartrate (Lopressor) 50 mg PO TID STEPHY Last Admin: 05/02/18 11:01 Dose: Not Given Metoprolol Tartrate (Lopressor) 5 mg IVPUSH Q6H PRN PRN Reason: heart rate Last Admin: 05/01/18 18:20 Dose: 5 mg Ondansetron HCl (Zofran) 4 mg IVPUSH Q8H PRN PRN Reason: Nausea/Vomiting Sodium Chloride (Saline Flush) 10 ml FLUSH ASDIRECTED PRN PRN Reason: Keep Vein Open Last Admin: 05/01/18 13:37 Dose: 10 ml Discontinued Medications Diltiazem HCl (Diltiazem) 10 mg IVPUSH ONETIME ONE Stop: 05/01/18 14:45 Last Admin: 05/01/18 15:10 Dose: 10 mg Fentanyl (Sublimaze) Confirm Administered Dose 100 mcg .ROUTE .STK-MED ONE Stop: 05/02/18 11:21 Magnesium Sulfate 2 gm/ Premix 50 mls @ 25 mls/hr IV ONETIME ONE Stop: 05/01/18 16:45 Last Admin: 05/01/18 15:16 Dose: 25 mls/hr Lidocaine HCl (Xylocaine-Mpf 1%) Confirm Administered Dose 6 mls @ as directed .ROUTE .STK-MED ONE Stop: 05/02/18 11:21 Metoprolol Tartrate (Lopressor) 50 mg PO ONETIME ONE Stop: 05/01/18 15:26 Last Admin: 05/01/18 15:33 Dose: 50 mg Polyethylene Glycol/Electrolytes (Golytely) 4,000 ml PO ONETIME ONE Stop: 05/01/18 18:22 Last Admin: 05/01/18 19:54 Dose: 4,000 ml Propofol (Diprivan 20 Ml) Confirm Administered Dose 200 mg .ROUTE .STK-MED ONE Stop: 05/02/18 11:21 - Exam Quality Assessment: DVT Prophylaxis General: Alert, Oriented, Cooperative, No Acute Distress HEENT: Pupils Equal, Pupils Reactive, EOMI Neck: Supple, Trachea Midline Lungs: Normal Respiratory Effort, Decreased Breath Sounds Cardiovascular: Regular Rate, Regular Rhythm GI/Abdominal Exam: Normal Bowel Sounds, Soft, Non-Tender, No Organomegaly, No Distention (Male) Exam: Deferred Back Exam: Normal Inspection Extremities: Normal Inspection, Normal Capillary Refill Skin: Warm Neurological: No New Focal Deficit Psy/Mental Status: Alert, Normal Affect, Normal Mood - Problem List & Annotations (1) Atrial fibrillation with rapid ventricular response SNOMED Code(s): 652285233872501 Code(s): I48.91 - UNSPECIFIED ATRIAL FIBRILLATION Status: Acute Current Visit: Yes (2) Anemia SNOMED Code(s): 564402409 Code(s): D64.9 - ANEMIA, UNSPECIFIED Status: Acute Current Visit: No Qualifiers: Anemia type: unspecified type Qualified Code(s): D64.9 - Anemia, unspecified (3) Congestive heart failure SNOMED Code(s): 48424936 Code(s): I50.9 - HEART FAILURE, UNSPECIFIED Status: Acute Current Visit: No Qualifiers: Heart failure type: right-sided Heart failure chronicity: unspecified Qualified Code(s): I50.810 - Right heart failure, unspecified (4) Hypertension SNOMED Code(s): 64992991 Code(s): I10 - ESSENTIAL (PRIMARY) HYPERTENSION Status: Acute Current Visit: No - Problem List Review Problem List Initiated/Reviewed/Updated: Yes - My Orders Last 24 Hours: My Active Orders 05/01/18 17:33 Activity as Tolerated [RC] .Routine 05/01/18 17:34 Code Status [Resuscitation Status] Routine 05/01/18 17:42 Consult to Physician [CONS] Routine 05/01/18 17:46 Notify Provider Consults [RC] ASDIRECTED 05/01/18 17:49 Metoprolol Tartrate [Lopressor] 5 mg IVPUSH Q6H PRN 05/01/18 19:11 Patient Status [ADT] Routine 05/01/18 19:45 Diltiazem 125 mg Sodium Chloride 0.9% [Normal Saline] 100 ml IV TITRATE 05/01/18 21:00 Metoprolol Tartrate [Lopressor] 50 mg PO TID 05/01/18 22:39 DAYANA Hose [Antiembolic Hose] [OM.PC] Routine 05/01/18 22:50 Ondansetron [Zofran] 4 mg IVPUSH Q8H PRN 05/02/18 03:55 EKG 12 Lead [EK] Routine 05/02/18 09:00 Consult to Occupational Therapy [OT Evaluation and Treatment] [CONS] Routine Consult to Physical Therapy [PT Evaluation and Treatment] [CONS] Routine 05/03/18 05:00 BMP [BASIC METABOLIC PANEL,BMP] [CHEM] DAILY CBC WITH AUTO DIFF [HEME] DAILY - Plan Plan:: Impression: A Fib with RVR converted to SR, Cardizem stopped at 0300. S/P PRBCs for anemia, Fe deficiency Query Hx of A Fib EGD/Colonoscopy today Reported Hx of CHF HTN Plan: Increase oral BB/add IVP BB Monitor hemodynamics NPO until procedure, await result Add Anticoagulation after GI procedures are completed. DVT prophylaxis Consult PT/OT/CM as needed.
[2018-05-02] MEDS ORDERED: Calcium Carbonate 500 MG Tab.Chew PO PRN (19:25)
[2018-05-02] MEDS: Apixaban 5 MG Tab PO SCH (20:50)
[2018-05-02] MEDS: Potassium Chloride 20 MEQ Tab.ER PO SCH (20:51)
[2018-05-03] MEDS ORDERED: Pantoprazole 40 MG Tab.CR PO SCH (06:00)
[2018-05-03] MEDS: Potassium Chloride 20 MEQ Tab.ER PO SCH (06:01)
[2018-05-03] MEDS ORDERED: amLODIPine 5 MG Tab PO SCH (09:00)
[2018-05-03] MEDS ORDERED: Allopurinol 100 MG Tab PO SCH (09:00)
[2018-05-03] MEDS ORDERED: Furosemide 40 MG/4 ML VIAL IVPUSH SCH (09:00)
[2018-05-03] MEDS: Apixaban 5 MG Tab PO SCH (09:19)
[2018-05-03] MEDS: Metoprolol Tartrate 50 MG Tab PO SCH ×2 (09:21→14:01)
--- NOTE | 2018-05-03 11:50 | PCM.DCSUM1 ---
Discharge Summary - Hospital Course Free Text/Narrative:: 82 year old male, A Fib history is unknown prior to admission; he converted to sinus rhythm in the ICU on a Cardizem gttt. The patient had an EGD and Colonoscopy for UGI/LGI bleed evaluation. He had received PRBCs as an outpatient. Presumptive dx post procedure: antritis; inflammation of the ileum, possible colitis vs recurrent cancer. Will need 2 D echo as an outpatient if not completed within the last 12 months. Consider Cardiology consult; started on low dose Eliquis, ASA has been stopped. Will need Gen Surg follow up re: GI bleed work up. Protonix 40 mg BID AC given. 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 He received 2 units of PRBCs 48 hours [employer]. He complained of SOB, but denied palpitations. he is unaware of a diagnosis of A Fib, however he is on cardiac rate controlling meds including Metoprolol. He stated that he took his meds this morning. The Patient denies additional complaints. He will be admitted for close monitoring and treatment. A general surgery consult has been ordered. Golytely has been ordered with a clear liquid diet. He will be managed services consultant for an UGI/LGI procedures on 05/02/18. The patient is a full code. Diagnosis: Stroke: No - Discharge Data Discharge Date: 05/03/18 Discharge Disposition: Home, Self-Care 01 Condition: Good - Discharge Diagnosis/Problem(s) (1) Atrial fibrillation with rapid ventricular response SNOMED Code(s): 360084053573496 ICD Code: I48.91 - UNSPECIFIED ATRIAL FIBRILLATION Status: Acute Current Visit: Yes (2) Anemia SNOMED Code(s): 469122017 ICD Code: D64.9 - ANEMIA, UNSPECIFIED Status: Acute Current Visit: No Qualifiers: Anemia type: unspecified type Qualified Code(s): D64.9 - Anemia, unspecified (3) Congestive heart failure SNOMED Code(s): 04080831 ICD Code: I50.9 - HEART FAILURE, UNSPECIFIED Status: Acute Current Visit : No Qualifiers: Heart failure type: right-sided Heart failure chronicity: unspecified Qualified Code(s): I50.810 - Right heart failure, unspecified (4) Hypertension SNOMED Code(s): 47599665 ICD Code: I10 - ESSENTIAL (PRIMARY) HYPERTENSION Status: Acute Current Visit: No - Patient Summary/Data Operative Procedure(s) Performed: colonosocopy to iliocolonic anastomosis with bx and collection of specimine and EGD with bx Consults: Consultations 05/01/18 17:42 Consult to Physician [CONS] Routine 05/02/18 09:00 Consult to Occupational Therapy [OT Evaluation and Treatment] [CONS] Routine Consult to Physical Therapy [PT Evaluation and Treatment] [CONS] Routine - Patient Instructions Diet: Heart Healthy Diet Activity: As Tolerated Driving: May Drive Today Showering/Bathing: May Shower Notify Provider of: Fever, Increased Pain, Nausea and/or Vomiting - Discharge Plan Prescriptions/Med Rec: Apixaban [Eliquis] 2.5 mg PO BID #60 tablet Enalapril Maleate [Vasotec] 20 mg PO DAILY #30 tablet Metoprolol Tartrate [Lopressor] 50 mg PO TID #90 tablet Pantoprazole [ProTONIX] 40 mg PO BIDAC #60 tab.cr Potassium Chloride [Klor-Con M20] 20 meq PO DAILY #30 tab.er Home Medications: Home Meds Allopurinol [Zyloprim] 100 mg PO DAILY 04/29/18 [History] Calcium Carbonate [Tums] 1 tab PO DAILY PRN 04/29/18 [History] Colestipol [Colestipol HCl] 1 gm PO TID 04/29/18 [History] Furosemide [Lasix] 40 mg PO DAILY #30 tab 04/29/18 [Rx] amLODIPine [Norvasc] 5 mg PO DAILY 04/29/18 [History] Apixaban [Eliquis] 2.5 mg PO BID #60 tablet 05/03/18 [Rx] Enalapril Maleate [Vasotec] 20 mg PO DAILY #30 tablet 05/03/18 [Rx] Metoprolol Tartrate [Lopressor] 50 mg PO TID #90 tablet 05/03/18 [Rx] Pantoprazole [ProTONIX] 40 mg PO BIDAC #60 tab.cr 05/03/18 [Rx] Potassium Chloride [Klor-Con M20] 20 meq PO DAILY #30 tab.er 05/03/18 [Rx] Other Amb Orders: HEMOGLOBIN/HEMATOCRIT,HH [HEME] Time Frame: 05/08/18, Facility: [facility], Location: [facility] Patient Handouts: Holter Monitoring, Apixaban oral tablets Forms: ED Department Discharge Referrals: El Cash MD [Physician] - 05/16/18 10:00 am (You will be seeing Radha Zhang NP as will be out of the office.) Rosalai Duarte NP [Primary Care Provider] - 05/09/18 3:15 pm (Please come in early to have lab work done.) - Discharge Summary/Plan Comment DC Time >30 min.: No Discharge Summary/Plan Comment: Impression: Anemia-->source inconclusive: Antritis; inflammation of ileum A Fib with RVR converted to SR, Cardizem stopped at 0300; tolerating BB for maintaining SR S/P PRBCs for anemia, Fe deficiency S/P EGD/Colonoscopy Reported Hx of CHF HTN Plan: Tolerated EGD/Colonoscopy-->biopsies are pending. Stable Hgb-->ok to DC on Eliquis 2.5 mg BID, stopped ASA. Will need a 2 D echo if taken > 6months ago Hgb to be checked in 1 week. PCP follow up 1 week. Holter Monitor 48 hours Stable for DC, resume Heart Healthy diet. - General Info Date of Service: 05/01/18 Functional Status: Reports: Tolerating Diet, Ambulating, Urinating - Review of Systems General: Reports: No Symptoms HEENT: Reports: No Symptoms Pulmonary: Reports: No Symptoms Cardiovascular: Reports: No Symptoms Gastrointestinal: Reports: No Symptoms Genitourinary: Reports: No Symptoms Musculoskeletal: Reports: No Symptoms Skin: Reports: No Symptoms Neurological: Reports: No Symptoms Psychiatric: Reports: No Symptoms - Patient Data Vitals - Most Recent: Last Vital Signs Temp 36.6 C 05/03/18 06:02 Pulse 69 05/03/18 09:21 Resp 18 05/03/18 06:02 BP 136/77 05/03/18 09:22 Pulse Ox 96 05/03/18 06:02 Weight - Most Recent: 101.378 kg I&O - Last 24 hours: Intake & Output 05/02/18 05/03/18 05/03/18 22:59 06:59 14:59 Intake Total 400 400 Balance 400 400 Lab Results - Last 24 hrs: Laboratory Results - last 24 hr 05/03/18 05/03/18 Range/Units 05:55 05:55 WBC 7.83 (4.23-9.07) K/mm3 RBC 4.61 L (4.63-6.08) M/mm3 Hgb 9.5 L (13.7-17.5) gm/L Hct 32.7 L (40.1-51.0) % MCV 70.9 L (79.0-92.2) fl MCH 20.6 L (25.7-32.2) pg MCHC 29.1 L (32.2-35.5) g/dl RDW Std Deviation 51.3 H (35.1-43.9) fL Plt Count 238 (163-337) K/mm3 MPV 10.4 (9.4-12.3) fl Neut % (Auto) 75.6 H (34.0-67.9) % Lymph % (Auto) 11.9 L (21.8-53.1) % [place] % (Auto) 8.2 (5.3-12.2) % Eos % (Auto) 3.7 (0.8-7.0) Baso % (Auto) 0.5 (0.1-1.2) % Neut # (Auto) 5.92 H (1.78-5.38) K/mm3 Lymph # (Auto) 0.93 L (1.32-3.57) K/mm3 [place] # (Auto) 0.64 (0.30-0.82) K/mm3 Eos # (Auto) 0.29 (0.04-0.54) K/mm3 Baso # (Auto) 0.04 (0.01-0.08) K/mm3 Manual Slide Review Abnormal smear Sodium 143 (136-145) mEq/L Potassium 3.7 (3.5-5.1) mEq/L Chloride 108 H (98-107) mEq/L Carbon Dioxide 25 (21-32) mEq/L Anion Gap 13.7 (5-15) BUN 18 (7-18) mg/dL Creatinine 1.4 H (0.7-1.3) mg/dL Est Cr Clr Drug Dosing 42.08 mL/min Estimated GFR (MDRD) 49 (>60) mL/min BUN/Creatinine Ratio 12.9 L (14-18) Glucose 98 (83-115) mg/dL Calcium 7.9 L (8.5-10.1) mg/dL Triglycerides 107 (<150) mg/dL Cholesterol 98 (<200) mg/dL LDL Cholesterol Direct 60 (<100) mg/dL HDL Cholesterol 30.0 L (40-59) mg/dL LUIS Results - Last 24 hrs: Microbiology 05/02/18 12:11 - Final Stool / Feces - Stool, Liquid NEGATIVE FOR SHIGA TOXIN 1 - Final NEGATIVE FOR SHIGA TOXIN 2 05/02/18 12:11 Stool for WBCs - Final Stool / Feces - Stool, Liquid NO WBC SEEN Med Orders - Current: Current Medications Allopurinol (Zyloprim) 100 mg PO DAILY [facility] Last Admin: 05/03/18 09:21 Dose: 100 mg Amlodipine Besylate (Norvasc) 5 mg PO DAILY [facility] Last Admin: 05/03/18 09:22 Dose: 5 mg Apixaban (Eliquis) 2.5 mg PO BID [facility] Last Admin: 05/03/18 09:19 Dose: 2.5 mg Calcium Carbonate/Glycine (Tums) 250 mg PO DAILY PRN PRN Reason: Indigestion Furosemide (Lasix) 40 mg IVPUSH DAILY [facility] Last Admin: 05/03/18 09:22 Dose: 40 mg Metoprolol Tartrate (Lopressor) 50 mg PO TID [facility] Last Admin: 05/03/18 09:21 Dose: Not Given Metoprolol Tartrate (Lopressor) 5 mg IVPUSH Q6H PRN PRN Reason: heart rate Last Admin: 05/01/18 18:20 Dose: 5 mg Ondansetron HCl (Zofran) 4 mg IVPUSH Q8H PRN PRN Reason: Nausea/Vomiting Pantoprazole Sodium (Protonix) 40 mg PO BIDAC [facility] Last Admin: 05/03/18 05:57 Dose: 40 mg Colestipol 1 Gm 0 each PO TID [facility] Last Admin: 05/03/18 09:25 Dose: Not Given Potassium Chloride (Klor-Con M20) 40 meq PO BIDMEALS STEPHY Stop: 05/04/18 07:01 Last Admin: 05/03/18 06:01 Dose: 40 meq Sodium Chloride (Saline Flush) 10 ml FLUSH ASDIRECTED PRN PRN Reason: Keep Vein Open Last Admin: 05/01/18 13:37 Dose: 10 ml Discontinued Medications Diltiazem HCl (Diltiazem) 10 mg IVPUSH ONETIME ONE Stop: 05/01/18 14:45 Last Admin: 05/01/18 15:10 Dose: 10 mg Fentanyl (Sublimaze) Confirm Administered Dose 100 mcg .ROUTE .STK-MED ONE Stop: 05/02/18 11:21 Magnesium Sulfate 2 gm/ Premix 50 mls @ 25 mls/hr IV ONETIME ONE Stop: 05/01/18 16:45 Last Admin: 05/01/18 15:16 Dose: 25 mls/hr Diltiazem HCl 125 mg/ Sodium (Chloride) 125 mls @ 10 mls/hr IV TITRATE STEPHY; Protocol Last Titration: 05/02/18 03:49 Dose: 0 mg/hr, 0 mls/hr Lidocaine HCl (Xylocaine-Mpf 1%) Confirm Administered Dose 6 mls @ as directed .ROUTE .STK-MED ONE Stop: 05/02/18 11:21 Metoprolol Tartrate (Lopressor) 50 mg PO ONETIME ONE Stop: 05/01/18 15:26 Last Admin: 05/01/18 15:33 Dose: 50 mg Polyethylene Glycol/Electrolytes (Golytely) 4,000 ml PO ONETIME ONE Stop: 05/01/18 18:22 Last Admin: 05/01/18 19:54 Dose: 4,000 ml Propofol (Diprivan 20 Ml) Confirm Administered Dose 200 mg .ROUTE .STK-MED ONE Stop: 05/02/18 11:21 - Exam Quality Assessment: Reports: DVT Prophylaxis General: Reports: Alert, Oriented, Cooperative HEENT: Reports: Pupils Equal, Pupils Reactive, EOMI Neck: Reports: Trachea Midline, No JVD Lungs: Reports: Normal Respiratory Effort Cardiovascular: Reports: Regular Rate, Regular Rhythm GI/Abdominal Exam: Normal Bowel Sounds, Soft, Non-Tender, No Organomegaly, No Distention (Male) Exam: Deferred Rectal (Males) Exam: Deferred Back Exam: Reports: Normal Inspection Extremities: Normal Inspection, Non-Tender, Normal Capillary Refill Skin: Reports: Warm Neurological: Reports: No New Focal Deficit, Normal Gait, Normal Speech Psy/Mental Status: Reports: Alert, Normal Affect, Normal Mood
[2018-05-03 14:05] VITALS: BP 134/74
== END 2018-05-03 15:33 | disposition home or self-care (01) | DRG 310 ==
LOC: JD.ED 12:39 → JD.MS 16:42 → JD.ICU 19:34 → JD.MS 05-02 21:40
PROVIDERS: ADMIT Internal Medicine Cardiovascular Disease; ATTEND Internal Medicine Cardiovascular Disease
PROC: 0DBB8ZX Excision of Ileum, Via Natural or Artificial Opening Endoscopic, Diagnostic (ICD-10-PCS; principal; 2018-05-02)
PROC: 0DB48ZX Excision of Esophagogastric Junction, Via Natural or Artificial Opening Endoscopic, Diagnostic (ICD-10-PCS; 2018-05-02)
PROC: 0DB68ZX Excision of Stomach, Via Natural or Artificial Opening Endoscopic, Diagnostic (ICD-10-PCS; 2018-05-02)
DX: I48.91 Unspecified atrial fibrillation (principal); D50.9 Iron deficiency anemia, unspecified; K29.60 Other gastritis without bleeding; K21.9 Gastro-esophageal reflux disease without esophagitis; D64.9 Anemia, unspecified; K52.9 Noninfective gastroenteritis and colitis, unspecified; R06.02 Shortness of breath; I11.0 Hypertensive heart disease with heart failure; I50.9 Heart failure, unspecified; K21.0 Gastro-esophageal reflux disease with esophagitis; K44.9 Diaphragmatic hernia without obstruction or gangrene; Z88.0 Allergy status to penicillin; Z88.8 Allergy status to other drugs, medicaments and biological substances; Z79.82 Long term (current) use of aspirin; Z79.899 Other long term (current) drug therapy; Z85.038 Personal history of other malignant neoplasm of large intestine; Z90.49 Acquired absence of other specified parts of digestive tract
CPT/HCPCS: 36415; 71045; 80053; 83735; 84484; 85025; 85610; 93005; 96365; 96366; 96375; 99285; A9270; J3490; J7050; 00813; 80048; 80061; 81001; 85018; 87046; 87427; 88305; 88342; 89055; 97161-GP; 97165-GO; 97530-GO; J1940; J2001; J2704; J3010; J3475; J7030